=== PATIENT | male | born 1975 | race Two or more races ===

== ENCOUNTER 2018-06-02 13:08 | Outpatient (CLI) | payer OTHER ==
--- NOTE | 2018-06-02 15:57 | XRAY Report ---
Reason: SHOULDER JOINT PAIN, RIGHT, HIP JOINT PAIN, LEFT Procedure Date: 06/02/2018 Accession Number: [id number] / [id number] Procedure: XR - Hip w/Pelvis 2-3V LT CPT Code: FULL RESULT: EXAM: PELVIS AND LEFT HIP. HISTORY: PAIN TECHNIQUE: AP standing view of the pelvis and lateral view of the left hip. COMPARISON: Reformatted images from an abdomen pelvic CT 12/02/2015 FINDINGS: There is degenerative narrowing of the left greater than right hip joints. Superior acetabular spurring is present on the left. The configuration of the femoral head neck junction bilaterally would predispose to impingement type symptoms. No fracture, malalignment, or bone destruction. IMPRESSION: Degenerative change left greater than right hip.
--- NOTE | 2018-06-02 16:09 | XRAY Report ---
Reason: SHOULDER JOINT PAIN, RIGHT, HIP JOINT PAIN, LEFT Procedure Date: 06/02/2018 Accession Number: [id number] / [id number] Procedure: XR - Shoulder 2 View RT CPT Code: FULL RESULT: EXAM: RIGHT SHOULDER RADIOGRAPHY EXAM DATE: 06/02/2018 01:41 PM. CLINICAL HISTORY: Right shoulder pain COMPARISON: None. TECHNIQUE: 2 views. FINDINGS: Bones: No fracture or bone lesion. Joints: The glenohumeral joint is anatomically aligned. The acromioclavicular joint is not well seen. Soft tissues: The included hemithorax is unremarkable. No soft tissue swelling. 2 1 cm rectangle or densities seen, one lateral to the humeral head and one superior to the acromioclavicular joint may be related to superimposed structures. IMPRESSION: No evidence of acute fracture right shoulder. Comment: The patient will be recalled for technical repeat of the external rotation projection for evaluation of the right acromioclavicular joint and possible soft tissue calcification versus superimposed extraneous material. [facility]IA
== END 2018-06-02 13:09 | disposition home or self-care (01) ==
LOC: DI 13:08
PROVIDERS: ATTEND Family Medicine
DX: M25.511 Pain in right shoulder (principal); R93.7 Abnormal findings on diagnostic imaging of other parts of musculoskeletal system; M16.0 Bilateral primary osteoarthritis of hip

== ENCOUNTER 2020-04-08 12:42 | Outpatient (CLI) | payer OTHER ==
--- NOTE | 2020-04-08 13:44 | XRAY Report ---
PROCEDURE: Shoulder 2 View LT INDICATIONS: LT SHOULDER PAIN TECHNIQUE: 2 views of the shoulder were acquired. COMPARISON: None. FINDINGS: Bones: No fractures or dislocations. No suspicious bony lesions. Visualized ribs appear intact. P eriarticular osteophyte formation at the acromioclavicular joint. Soft tissues: No suspicious soft tissue calcifications. IMPRESSION: Osteoarthritis. No acute fracture. No osseous lesion. If symptoms and/or clinical suspic ion for pathology continue, further assessment with repeat plain films, or advanced imaging (e.g., CT , MRI, or bone scan) is recommended for further assessment. Reviewed by: Kylah Dalal MD on 04/08/2020 1:43 PM PST Approved by: Kylah Dalal MD on 04/08/2020 1:43 PM PST Station ID: [id number]
--- NOTE | 2020-04-08 14:33 | XRAY Report ---
PROCEDURE: Cervical Spine 2 View INDICATIONS: LEFT SHOULDER PAIN TECHNIQUE: 4 view(s) of the cervical spine were acquired. COMPARISON: None. FINDINGS: Bones: No acute compression fractures or dislocations to the T1 level. The lateral masses of C1 emile ear intact on the odontoid view. No suspicious bony lesions. Mild spondylitic changes seen in the mi d and lower cervical spine with anterior degenerative endplate changes seen at C4-5 through C6-7. The re is straightening of normal cervical lordosis. No acute compression fractures. Soft tissues: No prevertebral soft tissue swelling. IMPRESSION: Cervical spine without acute radiographic abnormalities. Mild multilevel mid and lower cervical spondylosis most pronounced from C4-5 through C6-7. Straightening of cervical lordosis likely related to positioning and/or concurrent muscle spasms. Reviewed by: Gautam Herring MD on 04/08/2020 2:31 PM PST Approved by: Gautam Herring MD on 04/08/2020 2:31 PM PST Station ID: [id number]
== END 2020-04-08 23:59 | disposition home or self-care (01) ==
LOC: DI.N 12:42
PROVIDERS: ATTEND Physician Assistant Medical
DX: M47.812 Spondylosis without myelopathy or radiculopathy, cervical region (principal); M19.012 Primary osteoarthritis, left shoulder

== ENCOUNTER 2020-09-05 08:00 | Outpatient (CLI) | payer OTHER ==
[2020-09-05 17:52] LABS: BASOPHILS # (AUTO) 0.1 10^3/uL (0.0-0.1); BASOPHILS % (AUTO) 0.7 %; EOSINOPHILS # (AUTO) 0.1 10^3/uL (0.0-0.7); EOSINOPHILS % (AUTO) 1.5 %; HCT - HEMATOCRIT 47.3 % (42.0-52.0); HGB - HEMOGLOBIN 14.9 g/dL (14.0-18.0); LYMPHOCYTES # (AUTO) 1.7 10^3/uL (1.5-3.5); MEAN CORPUSCULAR HEMOGLOBIN 31.5 pg (27.0-31.0); MEAN CORPUSCULAR HGB CONC 31.5 g/dL (32.0-36.0); MEAN PLATELET VOLUME 10.7 fL (7.4-11.4); MONOCYTES # (AUTO) 0.8 10^3/uL (0.0-1.0); NEUTROPHILS # (AUTO) 4.2 10^3/uL (1.5-6.6); NEUTROPHILS % (AUTO) 61.4 %; PLT - PLATELET COUNT 219 10^3/uL (130-450); RED BLOOD COUNT 4.73 10^6/uL (4.70-6.10); RED CELL DISTRIBUTION WIDTH 14.3 % (12.0-15.0); WHITE BLOOD COUNT 6.8 x10^3/uL (4.8-10.8)
[2020-09-05 18:13] LABS: ALBUMIN 4.5 g/dL (3.2-5.5); ALBUMIN/GLOBULIN RATIO 1.7 (1.0-2.2); ALKALINE PHOSPHATASE 44 IU/L (42-121); ALT ALANINE AMINOTRANSFERASE 21 IU/L (10-60); AST ASPARTATE AMINOTRANSFERASE 21 IU/L (10-42); BILIRUBIN,TOTAL 1.4 mg/dL (0.2-1.0); BUN - BLOOD UREA NITROGEN 11 mg/dL (6-20); CALCIUM 9.6 mg/dL (8.5-10.3); CARBON DIOXIDE - CO2 29 mmol/L (21-32); CHLORIDE 102 mmol/L (101-111); CHOL/HDL RATIO 6.3 (<5.0); CHOLESTEROL 215 mg/dL; CREATININE 0.9 mg/dL (0.6-1.2); GFR - MDRD 91 (>89); GLUCOSE 98 mg/dL (70-100); HDL CHOLESTEROL 34 mg/dL; LDL CHOLESTEROL,CALCULATED 160 mg/dL; LDL/HDL RATIO 4.7 (<3.6); POTASSIUM 4.3 mmol/L (3.5-5.0); SODIUM 139 mmol/L (135-145); TOTAL PROTEIN 7.1 g/dL (6.7-8.2); TRIGLYCERIDES 105 mg/dL; VLDL CHOLESTEROL 21 mg/dL
[2020-09-05 18:18] LABS: THYROID STIMULATING HORMONE 1.3 uIU/mL (0.34-5.60)
== END 2020-09-05 23:59 | disposition home or self-care (01) ==
LOC: LAB.WCP 08:00
PROVIDERS: ATTEND Physician Assistant Medical
DX: Z00.00 Encounter for general adult medical examination without abnormal findings (principal)
CPT/HCPCS: 36415; 80053; 80061; 83721; 84443; 85025

== ENCOUNTER 2021-06-23 12:38 | Outpatient (CLI) | payer OTHER ==
--- NOTE | 2021-06-23 16:27 | XRAY Report ---
PROCEDURE: Hip w/Pelvis 1V LT INDICATIONS: L HIP PX TECHNIQUE: AP pelvis with lateral view(s) of the left hip(s). COMPARISON: None. FINDINGS: Cam-type femoral acetabular impingement morphology on the left with moderate to severe age-advanced d egenerative changes characterized by joint space narrowing and osteophytosis along with subchondral s clerosis. No significant degenerative changes on the right, although there is also cam-type femoral acetabular impingement morphology. IMPRESSION: Moderate to severe degenerative change in the left hip with cam-type femoral acetabular i mpingement morphology. Reviewed by: Paul Ojeda MD on 06/23/2021 4:26 PM PST Approved by: Paul Ojeda MD on 06/23/2021 4:26 PM PST Station ID: [id number]
--- NOTE | 2021-06-23 16:46 | XRAY Report ---
PROCEDURE: Lumbar Spine 2 View INDICATIONS: CHRONIC LOW BACK PX TECHNIQUE: 3 views of the lumbar spine were acquired. COMPARISON: None. FINDINGS: Bones: 5 [id number] vertebrae are present. There is normal bony alignment. No acute vertebral body compression fractures. No suspicious bony lesions. There are mild spondylitic changes of the upper and mid lumbar spine with moderate spondylitic changes at the thoracolumbar junction and lumbos acral junction. There is mild disc space loss at T12-L1 and L1-L2. There is also mild disc space loss at L5-S1. Associated lower lumbar facet arthropathy. Soft tissues: Overlying bowel gas pattern is normal. No suspicious soft tissue calcifications. IMPRESSION: Lumbar spine without acute osseous abnormalities. Multilevel lumbar spondylosis most pro nounced at the thoracolumbar junction and lumbosacral junction. Reviewed by: Gautam Herring MD on 06/23/2021 4:44 PM PST Approved by: Gautam Herring MD on 06/23/2021 4:44 PM PST Station ID: [id number]
== END 2021-06-23 12:39 | disposition home or self-care (01) ==
LOC: DI.N 12:38
PROVIDERS: ATTEND Physician Assistant Medical
DX: M54.59 Other low back pain (principal); M25.552 Pain in left hip; M47.816 Spondylosis without myelopathy or radiculopathy, lumbar region; M47.817 Spondylosis without myelopathy or radiculopathy, lumbosacral region; M47.815 Spondylosis without myelopathy or radiculopathy, thoracolumbar region; M51.36 Other intervertebral disc degeneration, lumbar region; M51.37 Other intervertebral disc degeneration, lumbosacral region; M51.35 Other intervertebral disc degeneration, thoracolumbar region; M16.12 Unilateral primary osteoarthritis, left hip; M25.852 Other specified joint disorders, left hip

== ENCOUNTER 2021-11-03 11:08 | Outpatient (CLI) | payer OTHER ==
[2021-11-03 18:23] LABS: BASOPHILS % (AUTO) 0.6 %; EOSINOPHILS # (AUTO) 0.2 10^3/uL (0.0-0.7); EOSINOPHILS % (AUTO) 3.2 %; HCT - HEMATOCRIT 44.8 % (42.0-52.0); HGB - HEMOGLOBIN 14.5 g/dL (14.0-18.0); LYMPHOCYTES # (AUTO) 1.8 10^3/uL (1.5-3.5); LYMPHOCYTES % (AUTO) 28.7 %; MEAN CORPUSCULAR HEMOGLOBIN 31.4 pg (27.0-31.0); MEAN CORPUSCULAR HGB CONC 32.4 g/dL (32.0-36.0); MEAN PLATELET VOLUME 10.5 fL (7.4-11.4); MONOCYTES # (AUTO) 0.6 10^3/uL (0.0-1.0); NEUTROPHILS # (AUTO) 3.7 10^3/uL (1.5-6.6); NEUTROPHILS % (AUTO) 58.2 %; PLT - PLATELET COUNT 204 10^3/uL (130-450); RED BLOOD COUNT 4.62 10^6/uL (4.70-6.10); RED CELL DISTRIBUTION WIDTH 14.4 % (12.0-15.0); WHITE BLOOD COUNT 6.3 x10^3/uL (4.8-10.8)
[2021-11-03 18:31] LABS: ALBUMIN 4.2 g/dL (3.2-5.5); ALBUMIN/GLOBULIN RATIO 1.4 (1.0-2.2); ALKALINE PHOSPHATASE 42 IU/L (42-121); ALT ALANINE AMINOTRANSFERASE 20 IU/L (10-60); AST ASPARTATE AMINOTRANSFERASE 25 IU/L (10-42); BILIRUBIN,TOTAL 0.6 mg/dL (0.2-1.0); BUN - BLOOD UREA NITROGEN 23 mg/dL (6-20); CALCIUM 9.5 mg/dL (8.5-10.3); CARBON DIOXIDE - CO2 27 mmol/L (21-32); CHLORIDE 102 mmol/L (101-111); CHOL/HDL RATIO 9.7 (<5.0); CHOLESTEROL 389 mg/dL; CREATININE 0.8 mg/dL (0.6-1.2); GFR - MDRD 104 (>89); GLUCOSE 87 mg/dL (70-100); HDL CHOLESTEROL 40 mg/dL; LDL CHOLESTEROL,CALCULATED 322 mg/dL; LDL/HDL RATIO 8.1 (<3.6); POTASSIUM 3.9 mmol/L (3.5-5.0); SODIUM 136 mmol/L (135-145); TOTAL PROTEIN 7.2 g/dL (6.7-8.2); TRIGLYCERIDES 134 mg/dL; VLDL CHOLESTEROL 27 mg/dL
[2021-11-03 18:43] LABS: THYROID STIMULATING HORMONE 1.42 uIU/mL (0.34-5.60)
== END 2021-11-03 11:09 | disposition home or self-care (01) ==
LOC: LAB.N 11:08
PROVIDERS: ATTEND Physician Assistant Medical
DX: Z00.00 Encounter for general adult medical examination without abnormal findings (principal); Z12.5 Encounter for screening for malignant neoplasm of prostate
CPT/HCPCS: 36415; 80053; 80061; 83721; 84153; 84443; 85025

== ENCOUNTER 2022-01-15 13:07 | Outpatient (CLI) | payer OTHER ==
[2022-01-15 18:37] LABS: CHOLESTEROL 230 mg/dL; HDL CHOLESTEROL 46 mg/dL; LDL CHOLESTEROL,CALCULATED 173 mg/dL; LDL/HDL RATIO 3.8 (<3.6); TRIGLYCERIDES 55 mg/dL; VLDL CHOLESTEROL 11 mg/dL
== END 2022-01-15 13:08 | disposition home or self-care (01) ==
LOC: LAB.N 13:07
PROVIDERS: ATTEND Physician Assistant Medical
DX: E78.5 Hyperlipidemia, unspecified (principal)
CPT/HCPCS: 36415; 80061; 83721

== ENCOUNTER 2022-02-02 13:54 | Outpatient (CLI) | payer OTHER ==
[2022-02-02 14:37] VITALS: BP 132/94
--- NOTE | 2022-02-02 14:37 | SLEEP CARE CONSULTATION ---
Information from patient questionnaire entered by Summer Trivedi. I have reviewed and concur with the information entered by Summer Trivedi. This document represents the service I personally performed and the decisions made by me, Payal Sparks ARNP. History of Present Illness Service Date and Time: 02/02/2022 1354 Previous diagnosis: Moderate, Obstructive Sleep Apnea-Hypopnea Syndrome AHI: 20.1 Reason for follow up: annual (LAST SEEN 11/2019 RESMED) Equipment type: BiPAP Equipment obtained from: [facility] (not getting) Mask style: Full face Mask brand: Resmed (AirTouch F20) Backup mask available: No Prior sleep studies: Yes Year and Where: Don't know HPI additional information: FANNIE MAYER was diagnosed to have moderate, AHI 20.1, obstructive sleep apnea-hypopnea syndrome and returned today for BIPAP therapy annual follow-up. Sleep Study - Results Prior sleep studies: Yes Year and Where: Don't know CPAP Compliance Data - Data Reviewed with Patient Average duration of nightly device use: 5 hours 56 minutes Compliance rate %: 88 (179/180 days used) Current pressure setting (cmH2O): 08/02 Average residual AHI: 17.9 Central apnea: 14.8 Obstructive apnea: 0.7 Hypopnea: 0.2 Average large leak: 31.5 l/min Subjective Patient concerns: reports: mask discomfort (using a nasal cushion, needs supplied with full face mask), dry mouth, nose, throat. denies: aerophagia, air blowing in eyes, mask leak noise, condensation in mask/hose, nasal congestion, epistaxis Observed to snore while using device: No Current pressure setting perceived as: comfortable On therapy, patient: reports: sleeping better, awakening more refreshed, being more awake and alert during the day, more rested overall. denies: drowsiness while driving Initial [place] Sleepiness Scale score: 8 (in 2019) Current [place] Sleepiness Scale score: 3 (01/2022) Allergies and Home Medications Drug allergies reviewed: Yes (NKDA) Home medication list reviewed: Yes Physical Exam Vital signs obtained and entered by: SUMMER Heard MA Blood Pressure: 132/94 (left arm) Cuff size: regular Heart Rate: 53 O2 Saturation: 98 Height: 5 ft 11.5 in Weight: 258 lb 9.6 oz Body Mass Index: 35.5 BMI Classification: Obese Impression and Plan 1. Obstructive Sleep Apnea-Hypopnea Syndrome, moderate, with good treatment compliance and fair apnea control with elevated residual AHI. On BiPAP therapy, the patient has better sleep quality and is more rested overall. The patients pressure will be changed to BIPAP 20/10 cmH20 for elevation of residual AHI. Patient advised to contact me if pressure change is uncomfortable so that it can be adjusted. Goals for apnea control discussed.He has not been getting supplies regularly for a very long time. He states he would like to try a different supply company. He has been using a nasal cushion mask but prefers a full face mask, AirTouch F20. I had one in the office that I gave to patient to use until able to get supplies from new DME. Patient's apnea severity and rationale for treatment to reduce apnea, improve sleep quality and reduce cardiovascular and cerebrovascular events was reviewed. I also reviewed the benefit of consistent device use of BIPAP for hypertension and gastric reflux. 2. Obesity, unspecified. Currently patients BMI is 35.5. Patient has lost about 100 lbs since the last time he was in our office. Obesity increases the risk of apnea, BIPAP pressure requirements and overall health risks especially cardiovascular and diabetes. Thus patient is advised to continue to try to lose weight. Weight loss can be done with reducing portion size, reducing refined foods and balancing content with vegetables, fruit and whole grain foods. In addition, patient encouraged to get regular exercise. * Change BiPAP pressure to [20/10] cmH2O * Transfer DME * Update supplies * Notify me if snoring with mask or feeling that the pressure is too much or too little * Continue to try to lose weight * Call this office if any problems using BiPAP * Return for follow up in 1-2 months, or sooner if concerns arise Counseling Topics: Spare mask, Weight loss health impact Visit Type: In Office Time Spent with Patient (minutes): 23 Provider Statement: I spent 100% of the Face to Face Visit with the patient with greater than 50% spent counseling the patient and coordination of care.
== END 2022-02-02 13:55 | disposition home or self-care (01) ==
LOC: SC 13:54
PROVIDERS: ATTEND Nurse Practitioner Family
DX: G47.33 Obstructive sleep apnea (adult) (pediatric) (principal); E66.9 Obesity, unspecified; Z68.35 Body mass index [BMI] 35.0-35.9, adult
CPT/HCPCS: 99212; 99213

== ENCOUNTER 2022-05-22 14:24 | Outpatient (CLI) | payer OTHER ==
[2022-05-22 19:43] LABS: CHOL/HDL RATIO 4.7 (<5.0); CHOLESTEROL 233 mg/dL; HDL CHOLESTEROL 50 mg/dL; LDL CHOLESTEROL,CALCULATED 169 mg/dL; LDL/HDL RATIO 3.4 (<3.6); TRIGLYCERIDES 69 mg/dL; VLDL CHOLESTEROL 14 mg/dL
== END 2022-05-22 14:25 | disposition home or self-care (01) ==
LOC: LAB.N 14:24
PROVIDERS: ATTEND Physician Assistant Medical
DX: E78.5 Hyperlipidemia, unspecified (principal)
CPT/HCPCS: 36415; 80061; 83721

== ENCOUNTER 2023-02-17 12:51 | Outpatient (CLI) | payer OTHER ==
[2023-02-17 17:50] LABS: BASOPHILS # (AUTO) 0.1 10^3/uL (0.0-0.1); BASOPHILS % (AUTO) 1.2 %; EOSINOPHILS # (AUTO) 0.1 10^3/uL (0.0-0.7); EOSINOPHILS % (AUTO) 2.2 %; HCT - HEMATOCRIT 48.1 % (42.0-52.0); HGB - HEMOGLOBIN 15.7 g/dL (14.0-18.0); LYMPHOCYTES # (AUTO) 1.3 10^3/uL (1.5-3.5); LYMPHOCYTES % (AUTO) 22.5 %; MEAN CORPUSCULAR HGB CONC 32.6 g/dL (32.0-36.0); MEAN CORPUSCULAR VOLUME 98.2 fL (80.0-94.0); MEAN PLATELET VOLUME 10.6 fL (7.4-11.4); MONOCYTES # (AUTO) 0.6 10^3/uL (0.0-1.0); MONOCYTES % (AUTO) 9.8 %; NEUTROPHILS # (AUTO) 3.7 10^3/uL (1.5-6.6); NEUTROPHILS % (AUTO) 64.1 %; PLT - PLATELET COUNT 230 10^3/uL (130-450); RED CELL DISTRIBUTION WIDTH 12.6 % (12.0-15.0); WHITE BLOOD COUNT 5.8 x10^3/uL (4.8-10.8)
[2023-02-17 18:41] LABS: ALBUMIN 4.5 g/dL (3.2-5.5); CHOL/HDL RATIO 5.2 (<5.0); CHOLESTEROL 241 mg/dL; HDL CHOLESTEROL 46 mg/dL; LDL CHOLESTEROL,CALCULATED 165 mg/dL; LDL/HDL RATIO 3.6 (<3.6); TRIGLYCERIDES 150 mg/dL (48-352); URIC ACID 7.5 mg/dL (4.4-7.6); VLDL CHOLESTEROL 30 mg/dL
[2023-02-17 18:46] LABS: ALBUMIN/GLOBULIN RATIO 1.7 (1.0-2.2); ALKALINE PHOSPHATASE 36 IU/L (42-121); ALT ALANINE AMINOTRANSFERASE 15 IU/L (10-60); AST ASPARTATE AMINOTRANSFERASE 26 IU/L (10-42); BILIRUBIN,TOTAL 0.3 mg/dL (0.2-1.0); BUN - BLOOD UREA NITROGEN 18 mg/dL (6-20); CALCIUM 9.4 mg/dL (8.5-10.3); CARBON DIOXIDE - CO2 29 mmol/L (21-32); CHLORIDE 105 mmol/L (101-111); CREATININE 0.9 mg/dL (0.6-1.3); GFR - MDRD 90 (>89); GLUCOSE 95 mg/dL (74-104); POTASSIUM 4.4 mmol/L (3.5-4.5); SODIUM 139 mmol/L (135-145); TOTAL PROTEIN 7.2 g/dL (6.4-8.9)
[2023-02-17 19:19] LABS: THYROID STIMULATING HORMONE 2.01 uIU/mL (0.34-5.60)
== END 2023-02-17 12:52 | disposition home or self-care (01) ==
LOC: LAB.N 12:51
PROVIDERS: ATTEND Physician Assistant Medical
DX: Z00.00 Encounter for general adult medical examination without abnormal findings (principal); E78.5 Hyperlipidemia, unspecified; Z12.5 Encounter for screening for malignant neoplasm of prostate; M10.9 Gout, unspecified
CPT/HCPCS: 36415; 80053; 80061; 83721; 84153; 84443; 84550; 85025